=== PATIENT | female | born 1965 | race Caucasian/White ===

== ENCOUNTER 2016-12-22 16:06 | Emergency (ER) | payer MEDICAID ==
--- NOTE | 2016-12-22 16:31 | EDPHY ---
H & P Time Seen by Provider: 12/22/16 16:27 HPI/ROS: CHIEF COMPLAINT: Left ankle injury HISTORY OF PRESENT ILLNESS: 51-year-old female arrives via private vehicle complaining of acute left lateral ankle injury after she rolled her foot in her yd. Able to bear partial weight. Occurred shortly prior to arrival. Pain reproducible with palpation range of motion. No paresthesia. No proximal distal pain or injury. PHYSICAL EXAM (Prior to examination, patient consented to physical exam, hands were washed and my usual and customary physical exam procedures followed) 1) GENERAL: Well-developed, well-nourished, alert and oriented. Appears to be in no acute distress. 2) HEAD: Normocephalic 3) HEENT: Pupils equal, round, reactive to light bilaterally. 4) LUNGS: Breathing comfortably. 5) MUSCULOSKELETAL: tender to palpation lateral malleolus. proximal tibia and fibula nontender . Fibular head nontender. 5th MT nontender negative Jesus test, compartments soft 6) SKIN: intact 7) VASCULAR: DP,PT pulses and cap refill present and brisk DIFFERENTIAL DIAGNOSIS: in no particular order including but not limited to fracture, sprain, compartment syndrome Procedure: Crutches indications for crutch use discussed with patient. Patient fitted for crutches by ER staff. Observed ambulating with crutches. I think the patient has the capacity to safely use crutches. Usual and customary crutch walking precautions provided Procedure: Splint A Seth boot splint was applied by ER video game technician. After application of the splint I returned and re-examined the patient. The splint was adequately immobilizing the joint and distal to the splint the patient's circulation and sensation were intact. Patient shows no signs of compartment syndrome. Was given orthopedic precautions. Smoking Status: Never smoked Constitutional: Initial Vital Signs Temperature (C) 36.8 C 12/22/16 16:32 Heart Rate 68 12/22/16 16:32 Respiratory Rate 18 12/22/16 16:32 Blood Pressure 136/64 H 12/22/16 16:32 O2 Sat (%) 96 12/22/16 16:32 O2 Delivery Mode Room Air Allergies/Adverse Reactions: No Known Allergies Allergy (Verified 12/10/14 14:44) Home Medications: Medication Instructions Recorded Ibuprofen 12/10/14 [email or web address] 12/10/14 MDM/Departure - MDM Imaging Results: Imaging Impressions Ankle X-Ray 12/22/16 16:29 Impression: Negative left ankle series. Images reviewed by myself - Depart Disposition: Home, Routine, Self-Care Clinical Impression: Left ankle sprain Qualifiers: Encounter type: initial encounter Involved ligament of ankle: unspecified ligament Qualified Code(s): S93.402A - Sprain of unspecified ligament of left ankle, initial encounter Condition: Good Instructions: Ankle Sprain (ED) Additional Instructions: Return to the ER immediately if you experience discoloration, have worsening pain, numbness, tingling, or any other symptoms that concern you. If you received x-rays in the emergency department today, be advised, that ligamentous , tendon, muscular, and other non-bony injury cannot be fully ruled out. Try to keep your affected extremity elevated above the level of your chest, and keep cold packs on the affected area, for the next 48 hours. Adult Pain & Fever Control: We recommend Acetaminophen (Tylenol) and Ibuprofen (Motrin,Advil) for pain and fever control. When fever is high or pain severe, both drugs can be used at the same time, but at different intervals. Please note the time differences. Your dose is: Acetaminophen 650 mg every 4 to 6 hours Ibuprofen 600mg every 6 hours with food OR Note: do not take Acetaminophen with Hydrocodone (Vicodin, Lortab) or Oycodone (Percocet). These medications also contain Acetaminophen. No more than 3000mg of Acetaminophen should be taken in 24 hours (for an adult). Referrals: Cliff Romero MD [Medical Doctor] - 5-7 days, call for appt.
[2016-12-22 16:34] VITALS: TEMP 98.2
[2016-12-22 17:37] VITALS: BP 120/72; PULSE 78; RESP 16; O2SAT 97
== END 2016-12-22 17:38 | disposition home or self-care (01) ==
DX: S93.402A Sprain of unspecified ligament of left ankle, initial encounter (principal); X50.9XXA Other and unspecified overexertion or strenuous movements or postures, initial encounter; Y92.007 Garden or yard of unspecified non-institutional (private) residence as the place of occurrence of the external cause
CPT/HCPCS: L4386

== ENCOUNTER → 2017-04-30 | Outpatient (CLI) | payer MEDICAID | LOC: FIMAGING 08:51 | PROVIDERS: ATTEND Family Medicine | DX: N60.11 Diffuse cystic mastopathy of right breast (principal) ==

== ENCOUNTER → 2017-05-04 | Outpatient (CLI) | payer MEDICAID | LOC: FIMAGING 08:49 | PROVIDERS: ATTEND Family Medicine | DX: N63.10 Unspecified lump in the right breast, unspecified quadrant (principal); N63.20 Unspecified lump in the left breast, unspecified quadrant ==